=== PATIENT | female | born 1955 | race Caucasian/White ===

== ENCOUNTER → 2018-11-13 | Outpatient (CLI) | payer MEDICARE ==
[~2018-11-13] MED LIST: ALPR0.5T3; CEPH500C; CRS350T PO; CYCL5TAB11 PO; DESV50TA; DIVA-21 PO; DIVA500T PO; FRS325T; IBP800T PO; LAMO25TA71 PO; LOVA20TA2 PO; MELO15TA14; METR500T; NAPR-243 PO; NITR-65 PO; ONDA-42 SL; OXYC-12 PO; PREG50C PO; SULF1TAB35 PO
--- NOTE | 2018-11-13 11:31 | Diagnostic Imaging Report ---
INDICATION: Screening for osteoporosis. COMPARISON: None. FINDINGS: The bone mineral density of the hips and spine was measured. There are no prior studies available for comparison. The T score for the spine is -3.8. This does indicate osteoporosis. The total T score for the left hip is -2.6 and for the right hip -2.8. The T score for the left femoral neck is -2.5. All of these values indicate osteoporosis. However, the T score for the right femoral neck is -2.4 and this does fall in the range of severe osteopenia. AP Spine L1-L4: [BMD (g/cm2): 0.741] [T-Score: -3.8] [Z-Score: -3.0] [BMD Previous: NA] [BMD % Change: NA] LT Hip Neck: [BMD (g/cm2): 0.687] [T-Score: -2.5] [Z-Score: -1.5] LT Hip Total: [BMD (g/cm2):0.680] [T-Score:-2.6] [Z-Score: -1.9] [BMD Previous: NA] [BMD % Change: NA] RT Hip Neck: [BMD (g/cm2):0.701] [T-Score:-2.4] [Z-Score:-1.4] RT Hip Total: [BMD (g/cm2):0.659] [T-score:-2.8] [Z-Score:-2.1] [BMD Previous:NA] [BMD % Change:NA] *Indicates significant change from prior examination based on 95% confidence level. World Health Organization criteria for BMD interpretation classify patients as Normal (T-score at or above -1.0), Osteopenic (T-score between -1.0 and -2.5) or Osteoporotic (T-score at or below -2.5). LIMITATIONS AND MODIFICATION: None. FRACTURE RISK (FRAX SCORE): The ten year probability of (%): Major Osteoporotic Fracture: [13.0] Hip Fracture: [2.8] IMPRESSION: 1. There is osteoporosis of the spine, the total hip scores and the left femoral neck. 2. There is severe osteopenia of the right femoral neck. 3. See below National Osteoporosis Foundation guidelines on when to potentially initiate pharmacologic therapy. Based on the National Osteoporosis Foundation Guidelines, pharmacologic treatment should be initiated in any of the following, unless clinical conditions suggest otherwise: * Any patient with prior fragility fracture of the hip or vertebrae. A spine fracture indicates 5X risk for subsequent spine fracture and 2X risk for subsequent hip fracture. * Osteoporosis (T-score <-2.5). * Postmenopausal women and men age 50 and older with low bone mass/osteopenia (T-score between -1.0 and -2.5) by DXA and 10-year major osteoporotic fracture greater than 20% or a 10-year probability of hip fracture greater than 3%. These fracture risks are supplied above in the FRAX score, if applicable. * Clinician judgement and/or patient preferences may indicate treatment for people with 10-year fracture probabilities above or below these levels. Dictated by: Dictated on workstation # [id number]
== END ==
LOC: RAD 09:55
PROVIDERS: ATTEND Internal Medicine
DX: Z13.820 Encounter for screening for osteoporosis (principal); S22.080A Wedge compression fracture of T11-T12 vertebra, initial encounter for closed fracture; M85.88 Other specified disorders of bone density and structure, other site; M81.0 Age-related osteoporosis without current pathological fracture
CPT/HCPCS: 77080

== ENCOUNTER → 2021-08-31 | Outpatient (CLI) | payer MEDICARE ==
[~2021-08-31] MED LIST changes: +ZOLEDRONATE (RECLAST) 5 MG/100 ML IV ONE
[2021-08-31 11:47] VITALS: BP 147/68
== END ==
LOC: SDC 11:23
PROVIDERS: ATTEND Internal Medicine
DX: M81.0 Age-related osteoporosis without current pathological fracture (principal)
CPT/HCPCS: 96365